=== PATIENT | female | born 1950 | race Hispanic/Latino ===

== ENCOUNTER 2020-05-08 10:09 | Outpatient (CLI) | payer MEDICARE ==
[2020-05-08 10:58] LABS: Blood Urea Nitrogen 13 mg/dL (7-17)
--- NOTE | 2020-05-08 12:50 | Cat Scan Report ---
CTA of the chest with 3D Reconstruction Indication: ,MAIN Technique: TECHNIQUE: Axial CT images were obtained through the chest after injection of 100 cc of Omnipaque 350 IV contrast. 3 plane MIP reconstructions were produced. All CT scans at this location are performed using CT dose reduction for ALARA by means of automated exposure control. COMPARISON: None Automatic exposure control was utilized in an attempt to reduce radiation dose. Findings: Pulmonary arteries: There is a small filling defect in right lower lobe pulmonary artery branch jacqui cteristic small embolus, series 3 image 202. The main pulmonary artery and proximal right and left pu lmonary arteries fill satisfactorily with contrast. Lungs: There is mild peripheral interstitial disease. Mediastinum: Heart size is normal. No adenopathy is seen. There is a hiatal hernia. There is been pr ior gastric surgery Aorta: Normal in diameter. No dissection seen within limits of this exam. Impression: There is a very small embolus in a right lower lobe pulmonary artery branch. CRITICAL RESULT: Dr. Crabtree called this report to Dr. Posada's nurse,Anju , at time 1145central time. Report was confirmed. Signer Name: Alli Crabtree MD Signed: 05/08/2020 12:45 PM Workstation Name: [id number]
== END 2020-05-08 10:10 | disposition home or self-care (01) ==
LOC: CT 10:09
PROVIDERS: ATTEND Internal Medicine Cardiovascular Disease
DX: I26.99 Other pulmonary embolism without acute cor pulmonale (principal); K44.9 Diaphragmatic hernia without obstruction or gangrene; J98.4 Other disorders of lung; R79.89 Other specified abnormal findings of blood chemistry
CPT/HCPCS: 36415; 71275; 82565; 84520; Q9967

== ENCOUNTER 2020-05-13 07:34 | Day surgery (SDC) | payer MEDICARE ==
[2020-05-13] MEDS ORDERED: methylPREDNISolone Sod Succinate 125 MG/2 ML INJ ONE (08:32)
[2020-05-13] MEDS ORDERED: FAMOTIDINE 20 MG/2 ML INJ IV ONE (08:32)
[2020-05-13] MEDS ORDERED: diphenhydrAMINE 50 MG/ML VIAL ONE (08:32)
[2020-05-13 08:39] LABS: INR 0.92 (0.87-1.13)
[2020-05-13] MEDS ORDERED: HEPARIN/NS 5000 UNIT/500ML 1,000 ML IR ONE (08:59)
[2020-05-13] MEDS ORDERED: MIDAZOLAM 2 MG/2 ML INJ ONE (08:59)
[2020-05-13] MEDS ORDERED: fentaNYL 100 MCG/2 ML INJ ONE (08:59)
[2020-05-13] MEDS ORDERED: diphenhydrAMINE 50 MG/ML VIAL IV SCH (09:00)
[2020-05-13] MEDS ORDERED: NITROGLYCERIN SYRINGE 3 ML ONE (09:00)
[2020-05-13] MEDS ORDERED: FAMOTIDINE 20 MG/2 ML INJ IV SCH (09:00)
[2020-05-13] MEDS ORDERED: VERAPAMIL 5 MG/2 ML INJ ONE (09:00)
[2020-05-13] MEDS ORDERED: methylPREDNISolone Sod Succinate 125 MG/2 ML INJ IV SCH (09:00)
[2020-05-13] MEDS ORDERED: LIDOCAINE (2%) 20 MG/1 ML VIAL 20 ML MDV INFILTRATI ONE (09:00)
[2020-05-13] MEDS ORDERED: SODIUM CHLORIDE 0.9% 500 ML 500 ML IV SCH (09:00)
[2020-05-13] MEDS ORDERED: ASPIRIN EC 325 MG TAB PO ONE (09:00)
[2020-05-13] MEDS ORDERED: HEPARIN 10,000 UNITS/10 ML VIAL ONE (09:00)
[2020-05-13] MEDS ORDERED: HYDROcodone/ACETAMINOPHEN 5-325 MG TAB PO PRN (10:06)
[2020-05-13] MEDS ORDERED: traMADol 50 MG TAB PO PRN (10:06)
--- NOTE | 2020-05-13 10:12 | Short Stay Summary ---
Short Stay Documentation Date of service: 05/13/20 - History H&P: obtained from office - Allergies and Medications Current Medications: Allergies Iodinated Contrast Media Allergy (Severe, Verified 03/12/13 10:02) Rash IVP ibuprofen Allergy (Mild, Verified 03/12/13 10:00) Hives Home Medications Medication Instructions Recorded Confirmed Last Taken Type ALBUTEROL NEB's [Proventil 0.083%] 2.5 mg IH TID PRN 03/12/13 03/12/13 03/12/13 History Albuterol Mdi (or & Nicu Only) 2 puff IH QID PRN 03/12/13 03/12/13 03/11/13 History [Proair] Alendronate Sodium 70 mg PO 03/12/13 03/12/13 03/09/13 History Celecoxib [celeBREX] 200 mg PO 03/12/13 03/12/13 03/11/13 History Epinastine HCl 0.05 unit DAILY 03/12/13 03/12/13 03/11/13 History FLUoxetine [Prozac] 20 mg PO BID 03/12/13 03/12/13 03/11/13 History Fluticasone Propionate [Flovent 4 puff IH BID 03/12/13 03/12/13 03/11/13 History Diskus] Fluticasone Propionate [Flovent 4 puff IH BID 03/12/13 03/12/13 03/11/13 History Diskus] Gabapentin 400 mg PO TID 03/12/13 03/12/13 03/11/13 History Hydrocodone Bit/Acetaminophen 1 tab PO Q6H PRN 03/12/13 03/12/13 03/11/13 History [Hydrocodon-Acetaminophn 10-750 mg] Ipratropium/Albuter (Nf) 2 puff IH QID 03/12/13 03/12/13 03/11/13 History [Combivent Inhaler] Montelukast [Singulair] 10 mg PO QPM 03/12/13 03/12/13 03/11/13 History Morphine ER [Ms Contin ER] 120 mg PO BID 03/12/13 03/12/13 03/11/13 History Omeprazole [Prilosec] 40 mg PO QDAY 03/12/13 03/12/13 03/11/13 History Oxybutynin [Ditropan] 5 mg PO 03/12/13 03/12/13 03/11/13 History Roflumilast [Daliresp] 500 mcg PO QDAY 03/12/13 03/12/13 03/11/13 History Rosuvastatin (Nf) [Crestor] 10 mg PO QHS 03/12/13 03/12/13 03/11/13 History Tolterodine Tartrate [Detrol] 2 mg PO 03/12/13 03/12/13 03/11/13 History cycloSPORINE [Restasis 0.05%] 1 drop OP BID 03/12/13 03/12/13 03/11/13 History metroNIDAZOLE [Noritate 1%] 1 applicatio TP BID 03/12/13 03/12/13 03/11/13 History Active Medications Hydrocodone Bitart/Acetaminophen ([place] 5/325) 1 each PO Q4H PRN PRN Reason: Pain, Moderate (4-6) Diphenhydramine HCl (Benadryl) 50 mg IV ONCE ANGIE Stop: 05/13/20 11:00 Last Admin: 05/13/20 09:04 Dose: 50 mg Documented by: Famotidine (Pepcid) 20 mg IV ONCE ANGIE Stop: 05/13/20 11:00 Last Admin: 05/13/20 09:04 Dose: 20 mg Documented by: Sodium Chloride (Nacl 0.9% 500 Ml) 500 mls @ 50 mls/hr IV DIRECT ANGIE Stop: 05/13/20 18:59 Last Admin: 05/13/20 09:05 Dose: 50 mls/hr Documented by: Methylprednisolone Sodium Succinate (Solu-Medrol) 125 mg IV ONCE ANGIE Stop: 05/13/20 11:00 Last Admin: 05/13/20 09:03 Dose: 125 mg Documented by: Tramadol HCl (Ultram) 50 mg PO Q4H PRN PRN Reason: Pain, Mild (1-3) - Brief post op/procedure progress note Date of procedure: 05/13/20 Pre-op diagnosis: sob and cp Post-op diagnosis: same Procedure: see report Anesthesia: local Estimated blood loss: none Pathology: none - Disposition Condition at discharge: Good Disposition: DC-01 TO HOME OR SELFCARE - Discharge Diagnoses (1) COPD (chronic obstructive pulmonary disease) Status: Chronic Qualifiers: Chronic bronchitis type: unspecified (2) Hypertension Status: Chronic Qualifiers: Hypertension type: essential hypertension Qualified Code(s): I10 - Essential (primary) hypertension (3) SOB (shortness of breath) on exertion Status: Chronic (4) Chest pain at rest Status: Chronic (5) Abnormal cardiovascular stress test Status: Resolved Short Stay Discharge Plan Activity: advance as tolerated Diet: low fat, low cholesterol, low salt Wound: keep clean and dry Follow up with: PRIMARY CARE, [Primary Care Provider] - 7 Days
--- NOTE | 2020-05-13 11:48 | Cardiac Catherization Report ---
LEFT HEART CATHETERIZATION ORDERING PHYSICIAN: Dr. Posada. CLINICAL INFORMATION: This is a 70-year-old patient with recurrent chest pain and shortness of breath, has a history of COPD, because of recurrent chest pain, abnormal stress test, is here for left heart catheterization, left heart catheterization done with moderate sedation started at 9:39 and finished at 9:52, 13 minutes of moderate sedation. Procedure was done via the right radial artery, sterile technique, local anesthesia, 6-German radial sheath inserted. PROCEDURE FINDINGS: Left main is a large long vessel, patent. Diagonal is a medium caliber vessel, patent. LAD is a large caliber vessel, patent, Engaged RCA with JR4, is a large dominant vessel that is patent from proximally and distally. PDA, PLV are patent. anomalous circ coming off the RCA, which is a medium caliber vessel, patent. LV gram done in KENYAN and ALLEN view shows normal LV function, EF 55-60%, LVEDP 18 mmHg, LV is 120. Aortic is 120/65. No gradient across the aortic valve on pullback. 5-German catheters all taken over guidewire, 6-German radial sheath was discontinued. Radial dressing applied. No hematoma, no bleeding. SUMMARY: Left main large and patent. LAD large and patent. Diagonal medium caliber and patent. 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 RCA is a large dominant vessel, patent. PDA, PLV are medium caliber and patent. Circumflex is a small to medium caliber vessel and patent, normal LV function. Continue medical management. Discussed this in detail with the patient and the patient's family. JOB# [id number] DAE/JERI SOTO
[2020-05-13 12:02] VITALS: BP 128/99
== END 2020-05-13 12:34 | disposition home or self-care (01) ==
LOC: CATHLABREC 07:34
PROVIDERS: ATTEND Internal Medicine
DX: R07.89 Other chest pain (principal); R94.39 Abnormal result of other cardiovascular function study; R06.02 Shortness of breath; F17.210 Nicotine dependence, cigarettes, uncomplicated; I10 Essential (primary) hypertension; H40.9 Unspecified glaucoma; J43.9 Emphysema, unspecified; K21.9 Gastro-esophageal reflux disease without esophagitis; M19.90 Unspecified osteoarthritis, unspecified site; E11.9 Type 2 diabetes mellitus without complications; F32.9 Major depressive disorder, single episode, unspecified; F41.9 Anxiety disorder, unspecified; I20.8 Other forms of angina pectoris; G47.33 Obstructive sleep apnea (adult) (pediatric); E66.09 Other obesity due to excess calories; E78.49 Other hyperlipidemia; Z88.8 Allergy status to other drugs, medicaments and biological substances; Z79.899 Other long term (current) drug therapy; Z90.710 Acquired absence of both cervix and uterus; Z98.890 Other specified postprocedural states; Z86.010 Personal history of colon polyps; Z86.718 Personal history of other venous thrombosis and embolism; Z86.711 Personal history of pulmonary embolism; Z68.39 Body mass index [BMI] 39.0-39.9, adult
CPT/HCPCS: 36415; 85610; 85730; 93005; 93458; 99156; C1894; J1200; J1644; J2250; J2930; J3010; J7040; 96374; 96375; Q9967